=== PATIENT | female | born 1985 | race Caucasian/White ===

== ENCOUNTER 2017-01-11 23:40 | Emergency (ER) | payer OTHER ==
--- NOTE | ~2017-01-11 | CR63 ---
[facility] A Service of [facility] RADIOLOGY TEXT RESULTS PATIENT: ASHOK PARRA LOCATION: SED : 89 UNIT #: [id number] AGE: [address]: DIMAS MALIK SEX: F ORDER DR: [id number] [place] [id number] [id number] E MR#: [id number] Acc #: [id number] NAME: SAHOK PARRA : 1985 SEX: F STUDY DATE/TIME: 01/12/2017 0:43 UNIT: SED ROOM: STUDY DESCRIPTION: CR Chest 2 View Attending Physician: Dimas Malik Ordering Physician: Dimas Malik (Res) Primary Care Physician: Primary Care Physician No MEDICAL IMAGING REPORT This report is preliminary unless electronic signature is present. EXAM PA and lateral chest DATE 01/12/2017 HISTORY 31-year-old female with shortness of breath, asthma attack today. Brought in by EMS. Additional history of pneumonia. COMPARISON AP portable chest 10/22/2016. FINDINGS PA and lateral examination of the chest upright shows a good expansion of the parenchyma with a normal distribution of the pulmonary vascularity. There is no indication of congestion, effusion, infiltrate, tumor, or nodular density. The pleural reflections and diaphragmatic contours are normal. The cardiac silhouette and mediastinal anatomy is within normal limits. IMPRESSION Normal chest. Dictated by... Eve Avalos M.D. THIS IS AN ELECTRONICALLY VERIFIED REPORT Eve Avalos M.D. at 01/12/2017 9:58 PM [facility] A Service of [facility] RADIOLOGY TEXT RESULTS PATIENT: ASHOK PARRA LOCATION: SED : [birth year] UNIT #: [id number] AGE: [address]: DIMAS MALIK SEX: F ORDER DR: TD: 01/12/2017 02:11 JOB #: [id number] MEDICAL IMAGING REPORT Page 1 of 1
[~2017-01-11 23:40] MED LIST: ALBUTEROL2.5 MG/3 M; BACTRIM DS TABL1 TA1 PO; BIRTH CONTROL PILL; DARVOCET-N 1001 TAB PO; LORTAB 7.5-3251 EACH PO; LORTAB PO; MACROBID100 M1 PO; MOTRIN400 MG PO; NO MEDICATIONS; ULTRAM PO; [UNRECOGNIZED DRUG - OTHER] OS
== END 2017-01-12 01:26 | disposition home or self-care (01) ==
LOC: SED 23:40
DX: R06.02 Shortness of breath (principal); F19.10 Other psychoactive substance abuse, uncomplicated; J45.909 Unspecified asthma, uncomplicated; F41.9 Anxiety disorder, unspecified; F32.9 Major depressive disorder, single episode, unspecified; F17.210 Nicotine dependence, cigarettes, uncomplicated; Z79.899 Other long term (current) drug therapy; Z90.89 Acquired absence of other organs
CPT/HCPCS: 71020; 84703; 94640; 99284